=== PATIENT | female | born 1945 | race Caucasian/White ===

== ENCOUNTER 2017-02-18 12:03 | Day surgery (SDC) | payer MEDICARE, OTHER ==
[~2017-02-18] VITALS: Ht 160 cm; Wt 46.4 kg
[2017-02-18] MEDS ORDERED: TOPAMAX100 MG PO (14:05)
[2017-02-18] MEDS ORDERED: PREMARIN45 GM VG (14:05)
[2017-02-18] MEDS ORDERED: LINZESS290 MCG PO (14:06)
[2017-02-18] MEDS ORDERED: SPIRIVA18 MCG INH (14:06)
[2017-02-18 14:07] VITALS: BP 118/53; Ht 160 cm; Wt 46.4 kg
[2017-02-18 14:18] LABS: BASOPHILS 1.2 % (0-2); EOSINOPHILS 6.3 % (0-7); HEMATOCRIT 42.3 % (36.0-48.0); HEMOGLOBIN 13.6 g/dL (12-16); IMMATURE GRANULOCYTES 0.3 % (0-5); MCH 30.4 pg (26.0-34.0); MCHC 32.2 g/dL (31.0-37.0); MCV 94.6 fL (80.0-100.0); MEAN PLATELET VOLUME 11.5 fL (7.4-10.4); NEUTROPHILS 53.2 % (40-80); PLATELET COUNT 194 10x3/uL (130-400); RBC 4.47 10x6/uL (4.00-5.40); RDW 12.6 % (11.5-14.5); WBC 6.6 10x3/uL (4.8-10.8)
[2017-02-18 14:27] LABS: CALC OSMOLALITY 282 mosm/kg (275-300); CALCIUM 8.9 mg/dL (8.5-10.1); CARBON DIOXIDE 22.7 mmol/L (21.0-32.0); CHLORIDE - SERUM 109 mmol/L (98-107); CREATININE - SERUM 0.8 mg/dL (0.6-1.3); GLUCOSE 87 mg/dL (74-106); SODIUM 143 mmol/L (136-145); UREA NITROGEN 9 mg/dL (7-18); eGFR NON AFRICAN AMERICAN 75 mL/min (90-120)
--- NOTE | 2017-02-18 14:32 | NUR ---
NEEDS IV REFUSING TO BE STUCK SENT IV AND REGLAN AND PEPCID TO ENDO FOR ANESTHESIA TO DO.
--- NOTE | 2017-02-18 16:17 | NUR ---
1615 DISCHARGE INSTRUCTIONS COMPLETE. PT HAS NO QUESTIONS OR CONCERNS AT THIS TIME. PT ESCORTED OUT.
--- NOTE | 2017-02-24 12:46 | OP ---
PATIENT NAME: JOHNNY DENIS MEDICAL RECORD: [id number] :47 LOCATION:LOIS ADMISSION DATE: SURGEON: FUENTES MARTINEZ MD DATE OF OPERATION: 02/18/2017 PROCEDURE: Colonoscopy with polypectomy. INDICATIONS: Ms. Denis is a very pleasant 71-year-old woman with a history of melanosis coli and colon polyps. Her last colonoscopy on 12/07/2013 showed melanosis, a cecal polyp, transverse polyp and rectal polyps (cecal polyp was a tubular adenoma, transverse polyp was a tubular adenoma and the rectal polyps were hyperplastic). She has problems with constipation, well controlled with Linzess. She presents for outpatient surveillance colonoscopy. PREMEDICATIONS: Total IV anesthesia (history of obstructive sleep apnea), propofol 100 mg. INSTRUMENT: [employer] video colonoscope. PROCEDURE AND FINDINGS: After receiving informed consent, Ms. Denis was placed in left lateral decubitus position and sedated as per anesthesia. After achieving adequate level of sedation, digital rectal exam was performed that showed few external hemorrhoidal tags. No fissure or fistulas. Normal sphincter tone. No palpable rectal masses. The colonoscope was introduced per rectally and advanced to the cecum without difficulty. The cecum, IC valve, and appendiceal orifice were identified. As the colonoscope was withdrawn, careful inspection was made of the kaplan of the colon. Overall mucosa had normal vascular and fold pattern. There was no evidence of melanosis coli on this exam. There were few diverticula seen scattered in the ascending, transverse and sigmoid colon. In the proximal descending colon was a 0.5 cm sessile polyp, removed with biopsy forceps technique and in the mid descending colon was a 0.75 cm sessile polyp, removed with hot biopsy forceps technique. Retroflexion in the rectum showed no significant internal hemorrhoids. A good prep was present. Ms. Denis tolerated the procedure well, no immediate complications. ASSESSMENT: 1. Two descending colon polyps, status post polypectomy. 2. Mild diverticulosis coli involving the sigmoid, transverse and ascending colon. RECOMMENDATIONS: 1. Follow up histopathology. 2. Avoid aspirin, nonsteroidal anti-inflammatory drugs and KING-2 inhibitors for 14 days post polypectomy. 3. High fiber diet. 4. Surveillance colonoscopy in 3 years. TRANSINT:[id number] Voice Confirmation ID: [id number] DOCUMENT ID: [id number] OPERATIVE REPORT [id number] JOHNNY DENIS TERRI MD at 1246 CC: [id number] DICTATION DATE: 02/18/17 1538 BUSINESS SUPPORT ASSOCIATE: 02/18/17 1645 [facility] 02/18/17 [place] [id number] [place] [id number]
== END 2017-02-18 16:18 | disposition home or self-care (01) ==
LOC: D.OPS 12:03
PROVIDERS: Anesthesiology
DX: D12.4 Benign neoplasm of descending colon (principal); K57.30 Diverticulosis of large intestine without perforation or abscess without bleeding; G47.30 Sleep apnea, unspecified; K21.9 Gastro-esophageal reflux disease without esophagitis; Z01.812 Encounter for preprocedural laboratory examination

== ENCOUNTER 2018-07-18 10:36 | Emergency (ER) | payer MEDICARE, OTHER ==
[~2018-07-18 10:36] MED LIST: LINZESS290 MCG PO; PREMARIN45 GM VG; SPIRIVA18 MCG INH; TOPAMAX100 MG PO
[2018-07-18 10:42] VITALS: BMI 18.1
[2018-07-18] MEDS ORDERED: HYDROCODON-ACE1 EAC2 PO (12:53)
[2018-07-18 13:22] VITALS: BP 110/48
== END 2018-07-18 13:24 | disposition home or self-care (01) ==
LOC: D.ER 10:36
DX: M79.671 Pain in right foot (principal); M25.551 Pain in right hip; R07.89 Other chest pain; W18.31XA Fall on same level due to stepping on an object, initial encounter; Y93.89 Activity, other specified; Y92.019 Unspecified place in single-family (private) house as the place of occurrence of the external cause